=== PATIENT | female | born 1935 | race Caucasian/White ===

== ENCOUNTER → 2019-09-05 16:08 | Outpatient (CLI) | payer MEDICARE, SELFPAY ==
--- NOTE | 2019-09-05 16:07 | VDLE_ITS ---
Reason For Study: Pain RIGHT LEFT CFV is compressible, spontaneous, phasic, GSV is normal. competent and demonstrates normal CFV is compressible, spontaneous, phasic, augmentation. competent, and demonstrates normal Procedure augmentation. Exam performed in department. FV is compressible, spontaneous, phasic, A preliminary report was called and/or faxed competent and demonstrates normal to Dr. Terence Dillon. augmentation. Patient sent for Xeralto perscription and to POP V is compressible, spontaneous, phasic, follow up with PCP. competent and demonstrates normal augmentation. Lt T/P Trunk, Lt PTV, Lt PeroV, and Lt SoleusV are dilated and non compressible consistent with acute DVT. Interpretation Summary Acute deep venous thrombosis left tibioperoneal trunk and posterior tibial and peroneal and soleus veins Patent and compressible left great saphenous vein Normal flow patterns right common femoral vein Ordering Physician: Ever Pratt Referring Physician: Griselda Toney Performed By: Wilma Reyes, RDCS, RVT
== END ==
PROVIDERS: PCP Student in an Organized Health Care Education/Training Program; Referring Provider Podiatrist Foot & Ankle Surgery; Visit Provider Podiatrist Foot & Ankle Surgery
DX: M79.605 Pain in left leg (principal); S82.65XA Nondisplaced fracture of lateral malleolus of left fibula, initial encounter for closed fracture
CPT/HCPCS: 93971